=== PATIENT | male | born 1985 | race Caucasian/White ===

== ENCOUNTER → 2023-03-07 | Outpatient (CLI) | payer OTHER | LOC: MHCPAIN 07:58 | DX: M54.50 Low back pain, unspecified (principal); M79.18 Myalgia, other site | CPT/HCPCS: G0463 ==

== ENCOUNTER → 2023-04-04 | Outpatient (CLI) | payer OTHER | LOC: MHCPAIN 10:35 | DX: M79.18 Myalgia, other site (principal); M47.896 Other spondylosis, lumbar region | CPT/HCPCS: G0463 ==